=== PATIENT | female | born 1935 | race Caucasian/White ===

== ENCOUNTER 2018-05-01 09:15 | Observation (INO) | payer MEDICARE, BC ==
[2018-05-01] VITALS (8 sets, daily range): BP systolic 132–149; BP diastolic 43–81
[~2018-05-01] VITALS: Ht 171.4 cm; Wt 61.0 kg
[~2018-05-01 09:15] MED LIST: BENA1TAB79 PO; METO-384 PO; PRAV40TA3 PO; SAXA1TBM2 PO; VERA-1 PO; [UNRECOGNIZED DRUG - OTHER] PO
[2018-05-01 10:23] LABS: BASOPHILS % (AUTO) 0.6 % (0-1); EOSINOPHILS # (AUTO) 0.1 X10'3 (0-0.9); EOSINOPHILS % (AUTO) 1.8 % (0-6); LYMPHOCYTES # (AUTO) 1.3 X10'3 (1.1-4.8); LYMPHOCYTES % (AUTO) 17.6 % (21-51); MEAN CORPUSCULAR HEMOGLOBIN 18.4 PG (27.0-31.0); MEAN CORPUSCULAR HGB CONC 29.7 % (33.0-36.5); MEAN CORPUSCULAR VOLUME 61.8 FL (78-98); MEAN PLATELET VOLUME 7.9 FL (7.4-10.4); MONOCYTES # (AUTO) 0.5 X10'3 (0-0.9); MONOCYTES % (AUTO) 6.3 % (2-12); NEUTROPHILS # (AUTO) 5.7 X10'3 (1.8-7.7); NEUTROPHILS % (AUTO) 73.7 % (42-75); PLATELET COUNT 332 X10'3 (140-440); RED BLOOD COUNT 2.96 X10'6 (4.20-5.60); RED CELL DISTRIBUTION WIDTH 18.1 % (11.5-14.5); WHITE BLOOD COUNT 7.6 X10'3 (4.5-11.0)
[2018-05-01 10:30] LABS: PARTIAL THROMBOPLASTIN TIME 24 SECONDS (22-32); PROTHROMBIN TIME 10.7 SECONDS (9.0-12.0)
[2018-05-01 10:31] LABS: HEMATOCRIT 18.3 % (35.0-45.0); HEMOGLOBIN 5.4 g/dl (12.0-16.0)
[2018-05-01 10:36] LABS: ALANINE AMINOTRANSFERASE 16 U/L (12-78); ALBUMIN 3.7 G/DL (3.4-5.0); ALKALINE PHOSPHATASE 64 IU/L (46-116); ANION GAP 11 (8-16); ASPARTATE AMINO TRANSFERASE 16 U/L (10-37); BILIRUBIN,TOTAL 0.2 MG/DL (0.1-1.0); BLOOD UREA NITROGEN 36 MG/DL (7-18); BUN/CREATININE RATIO 23.1 (6.6-38.0); CALCIUM 8.9 MG/DL (8.5-10.1); CHLORIDE 101 MMOL/L (99-107); CREATININE 1.56 MG/DL (0.40-0.90); GLUCOSE 139 MG/DL (70-104); POTASSIUM 4.5 MMOL/L (3.5-5.1); SODIUM 140 MMOL/L (135-145); TOTAL CARBON DIOXIDE 28.2 MMOL/L (24-32); TOTAL PROTEIN 7.4 G/DL (6.4-8.2); eGFR 32 ML/MIN
[2018-05-01 10:45] LABS: HYPOCHROMASIA 2+; PLATELET ESTIMATE NORMAL
[2018-05-01 10:46] LABS: ANISOCYTOSIS 2+; ELLIPTOCYTES 1+; MICROCYTOSIS 3+; SCHISTOCYTES 1+
[2018-05-01 11:06] LABS: CLARITY,URINE CLEAR (Clear); COLOR,URINE YELLOW (Yellow); GLUCOSE, URINE NEGATIVE (Neg); KETONES,URINE NEGATIVE (Neg); LEUKOCYTE ESTERASE ,URINE NEGATIVE (Neg); NITRITES, URINE NEGATIVE (Neg); OCCULT BLOOD,URINE NEGATIVE (Neg); PH,URINE 6.5 (4.8-8.0); PROTEIN,URINE NEGATIVE (Neg); UROBILINOGEN,URINE 0.2 E.U/dL (0.2-1.0)
[2018-05-01 11:09] LABS: UA COLLECTION TYPE CLN CATCH MIDSTREAM
[2018-05-01] MEDS ORDERED: APIX5TAB3 PO (11:32)
[2018-05-01] MEDS ORDERED: LISI-642 PO (11:32)
[2018-05-01] MEDS ORDERED: LINA5TAB4 PO (11:32)
[2018-05-01] MEDS ORDERED: LANTUS SQ (11:32)
[2018-05-01] MEDS ORDERED: SPIR25TA PO (11:32)
[2018-05-01] MEDS ORDERED: FURO-150 PO (11:32)
[2018-05-01] MEDS ORDERED: PANT-47 PO (11:32)
[2018-05-01] MEDS ORDERED: AMIO200T40 PO (11:32)
[2018-05-01] MEDS ORDERED: METO-539 PO (11:32)
[2018-05-01] MEDS ORDERED: magnesium hydroxide 30ml (MOM) UD suspension PO PRN (14:00)
[2018-05-01] MEDS ORDERED: ondansetron/PF 4mg/2ml inj IV PRN (14:00)
[2018-05-01] MEDS ORDERED: mag hydrox/Alum hydrox/simeth 30ml oral suspension PO PRN (14:00)
[2018-05-01] MEDS: acetaminophen 325mg tablet PO PRN (15:17)
[2018-05-01 16:26] LABS: HEMATOCRIT 22.5 % (35.0-45.0); HEMOGLOBIN 7.1 g/dl (12.0-16.0); MEAN CORPUSCULAR HEMOGLOBIN 20.8 PG (27.0-31.0); MEAN CORPUSCULAR HGB CONC 31.6 % (33.0-36.5); MEAN CORPUSCULAR VOLUME 65.6 FL (78-98); MEAN PLATELET VOLUME 8.1 FL (7.4-10.4); PLATELET COUNT 287 X10'3 (140-440); RED BLOOD COUNT 3.44 X10'6 (4.20-5.60); RED CELL DISTRIBUTION WIDTH 22.7 % (11.5-14.5); WHITE BLOOD COUNT 6.6 X10'3 (4.5-11.0)
[2018-05-01] MEDS ORDERED: heparin, porcine 5000 units/ml vial SQ SCH (20:00)
[2018-05-01] MEDS: apixaban 5mg tablet PO SCH (22:19)
[2018-05-01] MEDS ORDERED: glucagon, human recombinant 1mg kit SUBCUT PRN (22:45)
[2018-05-01] MEDS ORDERED: MESSAGE TO PHARMACY PO ONE (22:45)
[2018-05-01] MEDS ORDERED: insulin Lispro (HumaLOG) vial - multi-dose SQ SCH (22:45)
[2018-05-01] MEDS ORDERED: dextrose 50%-water 50ml dispensing syringe IV PRN ×2 (22:45)
[2018-05-01] MEDS ORDERED: dextrose ORAL solution 15 GM/59 ML bottle PO PRN ×2 (22:45)
[2018-05-02] VITALS (7 sets, daily range): BP systolic 131–155; BP diastolic 50–58
[2018-05-02] MEDS: acetaminophen 325mg tablet PO PRN (04:08)
[2018-05-02] MEDS: apixaban 5mg tablet PO SCH (07:20)
[2018-05-02] MEDS ORDERED: amiodarone 200mg tablet PO SCH (08:00)
[2018-05-02] MEDS ORDERED: metoprolol succinate 25mg (24-HOUR) SR. Tablet PO SCH (08:00)
[2018-05-02 08:59] LABS: HEMATOCRIT 26.4 % (35.0-45.0); HEMOGLOBIN 8.8 g/dl (12.0-16.0); MEAN CORPUSCULAR HEMOGLOBIN 22.6 PG (27.0-31.0); MEAN CORPUSCULAR HGB CONC 33.3 % (33.0-36.5); MEAN PLATELET VOLUME 7.9 FL (7.4-10.4); PLATELET COUNT 286 X10'3 (140-440); RED BLOOD COUNT 3.89 X10'6 (4.20-5.60); RED CELL DISTRIBUTION WIDTH 24.9 % (11.5-14.5); WHITE BLOOD COUNT 6.7 X10'3 (4.5-11.0)
[2018-05-02] MEDS ORDERED: insulin glargine (Lantus) pen - multi-dose SQ SCH (21:00)
== END 2018-05-02 14:35 | disposition home or self-care (01) ==
LOC: ER 09:16 → ED HOLD 13:57 → PCU 3S 14:55
PROVIDERS: ADMIT Family Medicine; ATTEND Family Medicine
DX: D64.9 Anemia, unspecified (principal); R42 Dizziness and giddiness; R06.02 Shortness of breath; E11.9 Type 2 diabetes mellitus without complications; E78.00 Pure hypercholesterolemia, unspecified; I11.0 Hypertensive heart disease with heart failure; I50.9 Heart failure, unspecified; I48.91 Unspecified atrial fibrillation; J18.9 Pneumonia, unspecified organism; Z90.710 Acquired absence of both cervix and uterus
CPT/HCPCS: 36415; 36430; 71045; 80053; 81003; 82948; 83036; 85025; 85027; 85610; 85730; 86885; 86900; 86901; 86920; 87070; 93005; 99285; G0378; P9016; J1815

== ENCOUNTER 2018-06-17 08:24 | Day surgery (SDC) | payer MEDICARE, BC ==
[2018-06-17] VITALS (8 sets, daily range): BP systolic 116–135; BP diastolic 54–65
[~2018-06-17 08:24] MED LIST changes: +AMIO200T40 PO; +APIX5TAB3 PO; -BENA1TAB79 PO; +FURO-150 PO; +LANTUS SQ; +LINA5TAB4 PO; +LISI-642 PO; -METO-384 PO; +METO-539 PO; +PANT-47 PO; -PRAV40TA3 PO; -SAXA1TBM2 PO; +SPIR25TA PO; -VERA-1 PO; -[UNRECOGNIZED DRUG - OTHER] PO
[2018-06-17] MEDS ORDERED: ERGO400C2 PO (09:26)
[2018-06-17] MEDS ORDERED: VITA100C22 (09:26)
[2018-06-17] MEDS ORDERED: CYAN250014 (09:26)
[2018-06-17 14:47] LABS: HEMATOCRIT 29.3 % (35.0-45.0); HEMOGLOBIN 9.3 g/dl (12.0-16.0); MEAN CORPUSCULAR HEMOGLOBIN 22.8 PG (27.0-31.0); MEAN CORPUSCULAR HGB CONC 31.8 % (33.0-36.5); MEAN CORPUSCULAR VOLUME 71.6 FL (78-98); MEAN PLATELET VOLUME 8.2 FL (7.4-10.4); PLATELET COUNT 597 X10'3 (140-440); RED BLOOD COUNT 4.09 X10'6 (4.20-5.60); RED CELL DISTRIBUTION WIDTH 25.1 % (11.5-14.5); WHITE BLOOD COUNT 7.6 X10'3 (4.5-11.0)
== END 2018-06-17 15:00 | disposition home or self-care (01) ==
LOC: SSTAY O 08:24
PROVIDERS: ATTEND Family Medicine
DX: D64.9 Anemia, unspecified (principal); I48.91 Unspecified atrial fibrillation; I49.8 Other specified cardiac arrhythmias; M17.0 Bilateral primary osteoarthritis of knee; M19.011 Primary osteoarthritis, right shoulder; M19.012 Primary osteoarthritis, left shoulder; E11.9 Type 2 diabetes mellitus without complications; I11.0 Hypertensive heart disease with heart failure; I50.9 Heart failure, unspecified; Z87.01 Personal history of pneumonia (recurrent); Z90.710 Acquired absence of both cervix and uterus; Z79.01 Long term (current) use of anticoagulants; Z79.4 Long term (current) use of insulin; Z87.09 Personal history of other diseases of the respiratory system; Z79.899 Other long term (current) drug therapy; Z98.890 Other specified postprocedural states
CPT/HCPCS: 36415; 36430; 82948; 85027; 86885; 86900; 86901; 86920; P9016

== ENCOUNTER 2019-10-20 13:27 | Emergency (ER) | payer MEDICARE, BC ==
[~2019-10-20] VITALS: Ht 170.2 cm; Wt 58.0 kg
[~2019-10-20 13:27] MED LIST changes: +ALBU8.5H8 IH; -AMIO200T40 PO; +ASCO500C12 PO; +CYAN250014; +ERGO400C2 PO; +HYDR-3717 PO; +HYDR-3965 PO; -LANTUS SQ; +LEVO25TA2 PO; +METF500T PO; -PANT-47 PO; -SPIR25TA PO; +VITA100C22
[2019-10-20] MEDS ORDERED: normal saline 1000ml 1,000 ML IV ONE (13:55)
--- NOTE | 2019-10-20 13:55 | NUR ---
is waiting outside [phone]
[2019-10-20 14:24] LABS: BASOPHILS % (AUTO) 0.4 % (0-1); EOSINOPHILS # (AUTO) 0.1 X10'3 (0-0.9); EOSINOPHILS % (AUTO) 2.1 % (0-6); HEMATOCRIT 41.6 % (35.0-45.0); HEMOGLOBIN 13.3 g/dl (12.0-16.0); LYMPHOCYTES # (AUTO) 2.7 X10'3 (1.1-4.8); LYMPHOCYTES % (AUTO) 40.5 % (21-51); MEAN CORPUSCULAR HEMOGLOBIN 27.9 PG (27.0-31.0); MEAN CORPUSCULAR HGB CONC 32.1 g/dL (33.0-36.5); MEAN CORPUSCULAR VOLUME 86.9 FL (78-98); MEAN PLATELET VOLUME 8.5 FL (7.4-10.4); MONOCYTES # (AUTO) 0.4 X10'3 (0-0.9); MONOCYTES % (AUTO) 6.4 % (2-12); NEUTROPHILS # (AUTO) 3.4 X10'3 (1.8-7.7); NEUTROPHILS % (AUTO) 50.6 % (42-75); PLATELET COUNT 314 X10'3 (140-440); RED BLOOD COUNT 4.78 X10'6 (4.20-5.60); RED CELL DISTRIBUTION WIDTH 13.7 % (11.5-14.5); WHITE BLOOD COUNT 6.7 X10'3 (4.5-11.0)
[2019-10-20 14:25] LABS: CLARITY,URINE CLEAR (Clear); COLOR,URINE YELLOW (Yellow); GLUCOSE, URINE NEGATIVE (Neg); KETONES,URINE NEGATIVE (Neg); LEUKOCYTE ESTERASE ,URINE NEGATIVE (Neg); NITRITES, URINE NEGATIVE (Neg); OCCULT BLOOD,URINE NEGATIVE (Neg); PROTEIN,URINE NEGATIVE (Neg); UA COLLECTION TYPE CLN CATCH MIDSTREAM; UROBILINOGEN,URINE 0.2 E.U/dL (0.2-1.0)
--- NOTE | 2019-10-20 14:48 | NUR ---
ed number given to , stated will call to check on .
[2019-10-20 14:51] LABS: ALBUMIN 4.6 G/DL (3.4-5.0); ALBUMIN/GLOBULIN RATIO 1.3 (1.1-1.5); ALKALINE PHOSPHATASE 81 IU/L (46-116); ANION GAP 10 (8-16); ASPARTATE AMINO TRANSFERASE 19 U/L (10-37); BILIRUBIN,TOTAL 0.4 MG/DL (0.1-1.0); BLOOD UREA NITROGEN 23 MG/DL (7-18); BUN/CREATININE RATIO 25.6 (6.6-38.0); CHLORIDE 98 MMOL/L (99-107); GLUCOSE 200 MG/DL (70-104); MAGNESIUM 1.9 MG/DL (1.5-2.4); POTASSIUM 3.9 MMOL/L (3.5-5.1); SODIUM 139 MMOL/L (135-145); TOTAL PROTEIN 8.1 G/DL (6.4-8.2); eGFR 60 ML/MIN
[2019-10-20 15:06] LABS: ALANINE AMINOTRANSFERASE 10 U/L (12-78)
[2019-10-20 16:22] VITALS: BP 146/66
== END 2019-10-20 16:29 | disposition home or self-care (01) ==
LOC: ER 13:28
DX: E86.0 Dehydration (principal); R42 Dizziness and giddiness; I48.91 Unspecified atrial fibrillation; E78.00 Pure hypercholesterolemia, unspecified; I10 Essential (primary) hypertension; E11.9 Type 2 diabetes mellitus without complications; M19.90 Unspecified osteoarthritis, unspecified site; G89.29 Other chronic pain; Z79.01 Long term (current) use of anticoagulants; Z79.899 Other long term (current) drug therapy
CPT/HCPCS: 36415; 71045; 80053; 81003; 83735; 84484; 85025; 93005; 96360; 99285; J7030

== ENCOUNTER 2019-11-07 14:14 | Observation (INO) | payer MEDICARE, BC ==
[~2019-11-07] VITALS: Ht 170.2 cm; Wt 58.2 kg
[2019-11-07 14:45] LABS: BASOPHILS % (AUTO) 0.5 % (0-1); EOSINOPHILS # (AUTO) 0.2 X10'3 (0-0.9); EOSINOPHILS % (AUTO) 2.5 % (0-6); HEMATOCRIT 38.5 % (35.0-45.0); HEMOGLOBIN 12.4 g/dl (12.0-16.0); LYMPHOCYTES # (AUTO) 3.4 X10'3 (1.1-4.8); LYMPHOCYTES % (AUTO) 48.6 % (21-51); MEAN CORPUSCULAR HGB CONC 32.3 g/dL (33.0-36.5); MEAN CORPUSCULAR VOLUME 86.7 FL (78-98); MEAN PLATELET VOLUME 8.5 FL (7.4-10.4); MONOCYTES # (AUTO) 0.6 X10'3 (0-0.9); MONOCYTES % (AUTO) 8.1 % (2-12); NEUTROPHILS # (AUTO) 2.8 X10'3 (1.8-7.7); NEUTROPHILS % (AUTO) 40.3 % (42-75); PLATELET COUNT 222 X10'3 (140-440); RED BLOOD COUNT 4.43 X10'6 (4.20-5.60); RED CELL DISTRIBUTION WIDTH 13.7 % (11.5-14.5); WHITE BLOOD COUNT 7.1 X10'3 (4.5-11.0)
[2019-11-07 14:53] LABS: PARTIAL THROMBOPLASTIN TIME 36 SECONDS (22-32)
[2019-11-07 14:55] LABS: ALANINE AMINOTRANSFERASE 16 U/L (12-78); ALBUMIN 4.3 G/DL (3.4-5.0); ALBUMIN/GLOBULIN RATIO 1.4 (1.1-1.5); ALKALINE PHOSPHATASE 83 IU/L (46-116); ANION GAP 4 (8-16); ASPARTATE AMINO TRANSFERASE 20 U/L (10-37); BILIRUBIN,TOTAL 0.4 MG/DL (0.1-1.0); BLOOD UREA NITROGEN 23 MG/DL (7-18); BUN/CREATININE RATIO 23.2 (6.6-38.0); CALCIUM 9.3 MG/DL (8.5-10.1); CHLORIDE 96 MMOL/L (99-107); CREATININE 0.99 MG/DL (0.40-0.90); GLUCOSE 162 MG/DL (70-104); POTASSIUM 3.9 MMOL/L (3.5-5.1); SODIUM 133 MMOL/L (135-145); TOTAL PROTEIN 7.3 G/DL (6.4-8.2); eGFR 54 ML/MIN
[2019-11-07 14:58] LABS: CLARITY,URINE CLEAR (Clear); COLOR,URINE YELLOW (Yellow); GLUCOSE, URINE NEGATIVE (Neg); KETONES,URINE NEGATIVE (Neg); LEUKOCYTE ESTERASE ,URINE NEGATIVE (Neg); NITRITES, URINE NEGATIVE (Neg); OCCULT BLOOD,URINE NEGATIVE (Neg); PH,URINE 5.5 (4.8-8.0); PROTEIN,URINE NEGATIVE (Neg); UROBILINOGEN,URINE 0.2 E.U/dL (0.2-1.0)
[2019-11-07 15:00] LABS: UA COLLECTION TYPE CLN CATCH MIDSTREAM
[2019-11-07] MEDS ORDERED: dextrose 50%-water 50ml dispensing syringe IV PRN ×2 (16:25)
[2019-11-07] MEDS ORDERED: dextrose ORAL solution 15 GM/59 ML bottle PO PRN ×2 (16:25)
[2019-11-07] MEDS ORDERED: MESSAGE TO PHARMACY PO ONE (16:25)
[2019-11-07] MEDS ORDERED: magnesium hydroxide 30ml (MOM) UD suspension PO PRN (16:25)
[2019-11-07] MEDS ORDERED: HYDROcodone/acetaminophen 5mg/325mg tablet PO PRN (16:25)
[2019-11-07] MEDS ORDERED: acetaminophen 325mg tablet PO PRN ×2 (16:25)
[2019-11-07] MEDS ORDERED: morphine 2 MG/ML inj. syringe IV PRN ×2 (16:25)
[2019-11-07] MEDS ORDERED: ondansetron/PF 4mg/2ml inj IV PRN (16:25)
[2019-11-07] MEDS ORDERED: glucagon, human recombinant 1mg kit SUBCUT PRN (16:25)
[2019-11-07] MEDS ORDERED: mag hydrox/Alum hydrox/simeth 30ml oral suspension PO PRN (16:25)
[2019-11-07] MEDS ORDERED: insulin Lispro (HumaLOG) vial - multi-dose SQ SCH (16:25)
[2019-11-07] MEDS ORDERED: iohexol 350MG/ML 100ml bottle IV ONE (16:35)
[2019-11-07 17:05] LABS: HEMOGLOBIN A1C 7.3 % (4.5-6.2)
--- NOTE | 2019-11-07 17:40 | NUR ---
Received report from Dilshad KIMBALL
[2019-11-07 18:30] VITALS: BP 124/61
[2019-11-07] MEDS ORDERED: insulin glargine (Lantus) pen - multi-dose SQ SCH (21:00)
[2019-11-07] MEDS ORDERED: SACU1TAB (21:51)
[2019-11-07] MEDS ORDERED: MELA10TA7 PO (21:52)
[2019-11-07 22:00] VITALS: BP 114/65
[2019-11-07] MEDS ORDERED: apixaban 5mg tablet PO ONE (22:20)
[2019-11-07] MEDS ORDERED: Melatonin 3mg tablet PO ONE (22:20)
[2019-11-08 02:05] VITALS: BP 96/52
--- NOTE | 2019-11-08 06:32 | NUR ---
Problems reprioritized. Patient report given, questions answered & plan of care reviewed with REHANA NEAL.
[2019-11-08 06:37] LABS: BASOPHILS % (AUTO) 0.6 % (0-1); EOSINOPHILS # (AUTO) 0.1 X10'3 (0-0.9); EOSINOPHILS % (AUTO) 2.8 % (0-6); HEMATOCRIT 38.2 % (35.0-45.0); HEMOGLOBIN 12.5 g/dl (12.0-16.0); LYMPHOCYTES # (AUTO) 1.8 X10'3 (1.1-4.8); LYMPHOCYTES % (AUTO) 36.4 % (21-51); MEAN CORPUSCULAR HEMOGLOBIN 27.8 PG (27.0-31.0); MEAN CORPUSCULAR HGB CONC 32.8 g/dL (33.0-36.5); MEAN CORPUSCULAR VOLUME 84.8 FL (78-98); MONOCYTES # (AUTO) 0.4 X10'3 (0-0.9); MONOCYTES % (AUTO) 8.6 % (2-12); NEUTROPHILS # (AUTO) 2.6 X10'3 (1.8-7.7); NEUTROPHILS % (AUTO) 51.6 % (42-75); PLATELET COUNT 229 X10'3 (140-440); RED CELL DISTRIBUTION WIDTH 13.6 % (11.5-14.5)
[2019-11-08 06:43] LABS: ALBUMIN 3.6 G/DL (3.4-5.0); ANION GAP 5 (8-16); BLOOD UREA NITROGEN 22 MG/DL (7-18); CALCIUM 9.3 MG/DL (8.5-10.1); CHLORIDE 101 MMOL/L (99-107); CHOL/HDL RATIO 4.1 (0.00-4.99); CHOLESTEROL 209 MG/DL (0-200); CREATININE 0.88 MG/DL (0.40-0.90); GLUCOSE 120 MG/DL (70-104); HDL CHOLESTEROL 51 MG/DL (35-60); LDL CHOLESTEROL 145 MG/DL (50-100); POTASSIUM 3.8 MMOL/L (3.5-5.1); SODIUM 139 MMOL/L (135-145); TOTAL CARBON DIOXIDE 33.4 MMOL/L (24-32); TRIGLYCERIDES 88 MG/DL (20-135); eGFR 61 ML/MIN
[2019-11-08 07:12] VITALS: BP 109/65
[2019-11-08] MEDS ORDERED: aspirin 81mg tablet.DR PO SCH (08:00)
--- NOTE | 2019-11-08 08:17 | NUR ---
PT REFUSED ASPRIN BECAUSE HER PCP TOLD HER IT INTERACTS WITH CURRENT HOME MEDS. AWARE
[2019-11-08] MEDS ORDERED: ALBU8.5H8 INH (09:18)
[2019-11-08] MEDS ORDERED: FURO-150 PO (09:22)
--- NOTE | 2019-11-08 11:40 | NUR ---
DM Consult: A1C 7.3. Pt admit w/ syncope hx CHF, T2DM, afib, and hypothyroidism. Possible stroke or seizure per MD pending EEG, echocardiogram, and CTA head. Written DM ed w/ RD contact information placed in pt chart. Will continue to monitor. Addendum: 11/08/19 at [address] Amended: Links added.
[2019-11-08 12:03] VITALS: BP 85/49
[2019-11-08] MEDS ORDERED: ASPI-1071 PO (12:37)
[2019-11-08] MEDS ORDERED: ATOR10TA PO (12:40)
== END 2019-11-08 14:20 | disposition home or self-care (01) ==
LOC: ER 14:14 → ED HOLD 16:24 → EDBEDREQ 17:09 → ORTHO 4S 18:51
PROVIDERS: ADMIT Internal Medicine; ATTEND Internal Medicine
DX: R55 Syncope and collapse (principal); E11.9 Type 2 diabetes mellitus without complications; I48.0 Paroxysmal atrial fibrillation; E03.9 Hypothyroidism, unspecified; I11.0 Hypertensive heart disease with heart failure; I50.9 Heart failure, unspecified; E78.00 Pure hypercholesterolemia, unspecified; G45.9 Transient cerebral ischemic attack, unspecified; M19.90 Unspecified osteoarthritis, unspecified site; G89.29 Other chronic pain; Z79.01 Long term (current) use of anticoagulants; Z79.82 Long term (current) use of aspirin; Z79.84 Long term (current) use of oral hypoglycemic drugs; Z79.899 Other long term (current) drug therapy
CPT/HCPCS: 36415; 70450; 70496; 70498; 71045; 80048; 80053; 80061; 81003; 82948; 83036; 83880; 85025; 85610; 85651; 85730; 86885; 86900; 86901; 87081; 92508; 92616; 93005; 95816; 97116; 97161; 97530; 99285; G0378; Q9967; 99284; J1815

== ENCOUNTER 2023-11-13 10:49 | Outpatient (CLI) | payer MEDICARE, BC ==
[~2023-11-13 10:49] MED LIST changes: -ALBU8.5H8 IH; +APIX2.5T PO; -APIX5TAB3 PO; -HYDR-3965 PO; -LISI-642 PO; +MELA10TA20 PO; -VITA100C22; +VITA100C24
== END 2023-11-13 23:59 | disposition home or self-care (01) ==
LOC: RAD 10:49
PROVIDERS: ATTEND Family Medicine
DX: R91.8 Other nonspecific abnormal finding of lung field (principal)
CPT/HCPCS: 71250

== ENCOUNTER 2024-05-01 10:39 | Inpatient (IN) | payer MEDICARE, BC ==
[~2024-05-01] VITALS: Ht 215.9 cm; Wt 45.0 kg
[2024-05-01 12:27] LABS: MEAN CORPUSCULAR VOLUME 87.2 FL (78-98); MONOCYTES # (AUTO) 0.8 X10'3 (0-0.9)
[2024-05-01 12:29] LABS: BASOPHILS % (AUTO) 0.1 % (0-1); EOSINOPHILS # (AUTO) 0.1 X10'3 (0-0.9); EOSINOPHILS % (AUTO) 0.6 % (0-6); HEMATOCRIT 34.7 % (35.0-45.0); HEMOGLOBIN 11.6 g/dl (12.0-16.0); LYMPHOCYTES # (AUTO) 0.8 X10'3 (1.1-4.8); LYMPHOCYTES % (AUTO) 6.8 % (21-51); MEAN CORPUSCULAR HEMOGLOBIN 29.2 PG (27.0-31.0); MEAN CORPUSCULAR HGB CONC 33.5 g/dL (33.0-36.5); MEAN PLATELET VOLUME 9.2 FL (7.4-10.4); MONOCYTES % (AUTO) 7.4 % (2-12); NEUTROPHILS # (AUTO) 9.8 X10'3 (1.8-7.7); NEUTROPHILS % (AUTO) 85.1 % (42-75); PLATELET COUNT 260 X10'3 (140-440); RED BLOOD COUNT 3.98 X10'6 (4.20-5.60); RED CELL DISTRIBUTION WIDTH 14.2 % (11.5-14.5); WHITE BLOOD COUNT 11.5 X10'3 (4.5-11.0)
[2024-05-01 12:41] LABS: ALANINE AMINOTRANSFERASE 21 U/L (12-78); ALBUMIN/GLOBULIN RATIO 0.8 (1.1-1.5); ALKALINE PHOSPHATASE 93 IU/L (46-116); ANION GAP 7 (8-16); ASPARTATE AMINO TRANSFERASE 16 U/L (10-37); BILIRUBIN,TOTAL 0.4 MG/DL (0.1-1.0); BLOOD UREA NITROGEN 23 MG/DL (7-18); BUN/CREATININE RATIO 21.5 (10.0-20.0); CALCIUM 9.4 MG/DL (8.5-10.1); CHLORIDE 94 MMOL/L (99-107); CREATININE 1.07 MG/DL (0.40-0.90); GLUCOSE 364 MG/DL (70-104); POTASSIUM 5.1 MMOL/L (3.5-5.1); SODIUM 132 MMOL/L (135-145); TOTAL CARBON DIOXIDE 30.7 MMOL/L (24-32); eCRCL 26 ML/MIN; eGFR 49 ML/MIN
[2024-05-01 12:48] LABS: MAGNESIUM 1.6 MG/DL (1.5-2.4); PRO BRAIN NATRIURETIC PEPTIDE 2550 PG/ML (0-450)
[2024-05-01] MEDS: methylPREDNISolone sod succ 125mg/2ml vial IV ONE ×2 (14:20→17:33)
[2024-05-01] MEDS: cefepime 2g/NS 100ml ADVANTAGE 100 ML IV ONE (15:22)
[2024-05-01] MEDS: normal saline 1000ml 1,000 ML IV ONE (16:14)
[2024-05-01] MEDS: azithromycin/NS 500mg/250ml 250 ML IV ONE (16:20)
[2024-05-01] MEDS ORDERED: magnesium Cl slow-release 64mg tablet PO PRN ×2 (16:35→18:45)
[2024-05-01] MEDS ORDERED: potassium Cl 20 mEq SR tablet PO PRN ×4 (16:35→18:45)
[2024-05-01] MEDS ORDERED: potassium Cl 40MEQ/1/2NS 520ml 520 ML IV PRN ×2 (16:35→18:45)
[2024-05-01] MEDS ORDERED: magnesium sulf-water 2g/50mL 50 ML IV PRN ×2 (16:35→18:45)
[2024-05-01] MEDS ORDERED: magnesium sulf-water 4G/100mL 100 ML IV PRN ×2 (16:35→18:45)
[2024-05-01] MEDS: ondansetron/PF 4mg/2ml inj IV ONE (17:33)
[2024-05-01] MEDS: acetaminophen 1,000mg/100ml IV 100 ML IV ONE (17:34)
[2024-05-01] MEDS ORDERED: ondansetron/PF 4mg/2ml inj IV PRN (18:45)
[2024-05-01 18:47] LABS: BILIRUBIN,URINE NEGATIVE (Neg); CLARITY,URINE CLEAR (Clear); COLOR,URINE YELLOW (Yellow); GLUCOSE, URINE >=1000 mg/dl (Neg); KETONES,URINE NEGATIVE (Neg); LEUKOCYTE ESTERASE ,URINE NEGATIVE (Neg); NITRITES, URINE NEGATIVE (Neg); OCCULT BLOOD,URINE NEGATIVE (Neg); PH,URINE 5.5 (4.8-8.0); PROTEIN,URINE TRACE mg/dl (Neg); UROBILINOGEN,URINE 0.2 E.U/dL (0.2-1.0)
[2024-05-01 19:11] LABS: UA COLLECTION TYPE OTHER
[2024-05-01 19:12] LABS: BACTERIA,URINE FEW /HPF (Neg); RBC,URINE 0-2 /HPF (0-2); SQUAMOUS EPITHELIAL CELL,UR FEW /LPF (FEW); WBC,URINE 0-4 /HPF (0-4)
[2024-05-01] MEDS: ipratropium/albuterol 3ml nebule NEB SCH (19:14)
[2024-05-01 19:17] VITALS: PULSE 96; RESP 20; O2SAT 94
[2024-05-01 19:24] VITALS: PULSE 103; RESP 20
[2024-05-01] MEDS: K and/or MAG REPLACEMENT MC SCH ×2 (19:27)
[2024-05-01] MEDS: normal saline 1000ml 1,000 ML IV SCH (19:30)
[2024-05-01] MEDS ORDERED: LEVO50TA PO (20:03)
[2024-05-01] MEDS ORDERED: SACU1TAB7 PO (20:03)
[2024-05-01] MEDS ORDERED: SPIR1TAB4 PO (20:03)
[2024-05-01] MEDS ORDERED: dextrose 50%-water 50ml dispensing syringe IV PRN ×2 (20:20)
[2024-05-01] MEDS ORDERED: DEXTROSE 15 GM of carb/4 tabs (each vial/BOTTLE has 4 tablets) PO PRN ×2 (20:20)
[2024-05-01] MEDS ORDERED: glucagon, human recombinant 1mg kit SUBCUT PRN (20:20)
[2024-05-01] MEDS: INSULIN LISPRO 100 UNIT/ML INSULN.PEN MULTI-DOSE SQ SCH (20:32)
[2024-05-01 21:03] LABS: HEMOGLOBIN A1C 7.7 % (4.5-6.2)
[2024-05-01] MEDS: insulin glargine (Lantus) pen - multi-dose SQ SCH (21:15)
[2024-05-01] MEDS: PERFLUTREN PROTEIN-A MICROSPHR (Optison) 0.22 MG/ML 3ML VIAL IV ONE (21:18)
[2024-05-01 23:00] VITALS: BP 100/58; PULSE 100; PULSE 86; RESP 13; RESP 20; TEMP 98; O2SAT 94
[2024-05-01 23:07] VITALS: PULSE 89; RESP 20
[2024-05-01] MEDS: Melatonin 3mg tablet PO ONE (23:09)
[2024-05-01 23:45] VITALS: RESP 16; O2SAT 96
[2024-05-02] VITALS (16 sets, daily range): BP systolic 102–125; BP diastolic 46–75; PULSE 65–87; RESP 15–21; TEMP 97.1–97.9; O2SAT 92–100
[2024-05-02] MEDS: azithromycin/NS 500mg/250ml 250 ML IV ONE (05:49)
[2024-05-02] MEDS ORDERED: azithromycin/NS 500mg/250ml 250 ML IV SCH (08:00)
[2024-05-02] MEDS: sacubitril/valsartan 49mg-51mg tablet PO SCH (08:19)
[2024-05-02] MEDS: apixaban 2.5mg tablet PO SCH (08:19)
[2024-05-02] MEDS: metoprolol succinate 25mg (24-HOUR) SR. Tablet PO SCH (08:19)
[2024-05-02] MEDS: levoTHYROXINE 25mcg tablet PO SCH (08:19)
[2024-05-02 08:32] LABS: BASOPHILS % (AUTO) 0.1 % (0-1); EOSINOPHILS % (AUTO) 0 % (0-6); HEMATOCRIT 30.5 % (35.0-45.0); LYMPHOCYTES # (AUTO) 0.5 X10'3 (1.1-4.8); LYMPHOCYTES % (AUTO) 4.3 % (21-51); MEAN CORPUSCULAR HEMOGLOBIN 28.9 PG (27.0-31.0); MEAN CORPUSCULAR HGB CONC 32.7 g/dL (33.0-36.5); MEAN CORPUSCULAR VOLUME 88.6 FL (78-98); MEAN PLATELET VOLUME 9.7 FL (7.4-10.4); MONOCYTES # (AUTO) 0.3 X10'3 (0-0.9); MONOCYTES % (AUTO) 2.9 % (2-12); NEUTROPHILS % (AUTO) 92.7 % (42-75); PLATELET COUNT 273 X10'3 (140-440); RED BLOOD COUNT 3.45 X10'6 (4.20-5.60); RED CELL DISTRIBUTION WIDTH 14.8 % (11.5-14.5); WHITE BLOOD COUNT 10.8 X10'3 (4.5-11.0)
[2024-05-02 08:44] LABS: ALBUMIN 2.6 G/DL (3.4-5.0); ANION GAP 8 (8-16); BLOOD UREA NITROGEN 29 MG/DL (7-18); BUN/CREATININE RATIO 27.1 (10.0-20.0); CALCIUM 9.2 MG/DL (8.5-10.1); CHLORIDE 99 MMOL/L (99-107); CREATININE 1.07 MG/DL (0.40-0.90); MAGNESIUM 1.7 MG/DL (1.5-2.4); SODIUM 133 MMOL/L (135-145); TOTAL CARBON DIOXIDE 26.3 MMOL/L (24-32); eCRCL 26 ML/MIN; eGFR 49 ML/MIN
[2024-05-02 08:52] LABS: GLUCOSE 461 MG/DL (70-104)
[2024-05-02] MEDS: furosemide 10 MG/1 ML 10ml inj IV SCH (09:39)
[2024-05-02] MEDS: CefTRIAXone/D5W-Rocephin 1gm 50 ML IV SCH (20:17)
[2024-05-02] MEDS: sennosides/docusate sodium tablet PO SCH (20:44)
[2024-05-02] MEDS: acetaminophen 325mg tablet PO PRN (20:44)
[2024-05-02] MEDS: Melatonin 3mg tablet PO PRN (20:45)
[2024-05-03] VITALS: BP 106/58; PULSE 77; RESP 16; TEMP 97.8; O2SAT 98
[2024-05-03 07:00] VITALS: BP 121/62; PULSE 83; RESP 17; TEMP 97.2; O2SAT 98
[2024-05-03 07:16] LABS: BASOPHILS % (AUTO) 0.1 % (0-1); EOSINOPHILS # (AUTO) 0.1 X10'3 (0-0.9); EOSINOPHILS % (AUTO) 0.6 % (0-6); HEMATOCRIT 29.5 % (35.0-45.0); HEMOGLOBIN 9.8 g/dl (12.0-16.0); LYMPHOCYTES % (AUTO) 8.8 % (21-51); MEAN CORPUSCULAR HEMOGLOBIN 29.1 PG (27.0-31.0); MEAN CORPUSCULAR HGB CONC 33.2 g/dL (33.0-36.5); MEAN CORPUSCULAR VOLUME 87.9 FL (78-98); MEAN PLATELET VOLUME 8.5 FL (7.4-10.4); MONOCYTES # (AUTO) 0.7 X10'3 (0-0.9); MONOCYTES % (AUTO) 6.5 % (2-12); NEUTROPHILS # (AUTO) 9.2 X10'3 (1.8-7.7); PLATELET COUNT 292 X10'3 (140-440); RED BLOOD COUNT 3.36 X10'6 (4.20-5.60); RED CELL DISTRIBUTION WIDTH 14.7 % (11.5-14.5)
[2024-05-03 07:23] LABS: ALBUMIN 2.5 G/DL (3.4-5.0); ANION GAP 4 (8-16); BLOOD UREA NITROGEN 34 MG/DL (7-18); BUN/CREATININE RATIO 32.7 (10.0-20.0); CHLORIDE 100 MMOL/L (99-107); CREATININE 1.04 MG/DL (0.40-0.90); GLUCOSE 221 MG/DL (70-104); MAGNESIUM 1.6 MG/DL (1.5-2.4); POTASSIUM 4.6 MMOL/L (3.5-5.1); SODIUM 135 MMOL/L (135-145); TOTAL CARBON DIOXIDE 30.8 MMOL/L (24-32); eCRCL 27 ML/MIN; eGFR 50 ML/MIN
[2024-05-03 10:51] VITALS: PULSE 101; RESP 18; O2SAT 92
[2024-05-03 11:00] VITALS: BP 118/59; PULSE 103; PULSE 81; RESP 16; RESP 20; TEMP 97.4; O2SAT 97
[2024-05-03] MEDS ORDERED: LEVO-65 PO (12:54)
== END 2024-05-03 15:43 | disposition home or self-care (01) | DRG 193 ==
LOC: ER 10:40 → ED HOLD 16:34 → PCU 3S 22:33
PROVIDERS: ADMIT Internal Medicine; ATTEND Internal Medicine
DX: J18.9 Pneumonia, unspecified organism (principal); I50.23 Acute on chronic systolic (congestive) heart failure; J44.0 Chronic obstructive pulmonary disease with (acute) lower respiratory infection; I11.0 Hypertensive heart disease with heart failure; E03.9 Hypothyroidism, unspecified; E11.9 Type 2 diabetes mellitus without complications; Z20.822 Contact with and (suspected) exposure to COVID-19; Z66 Do not resuscitate; E78.00 Pure hypercholesterolemia, unspecified; G89.29 Other chronic pain; M13.88 Other specified arthritis, other site; I48.91 Unspecified atrial fibrillation; Z79.01 Long term (current) use of anticoagulants; Z79.84 Long term (current) use of oral hypoglycemic drugs; Z87.01 Personal history of pneumonia (recurrent); Z90.710 Acquired absence of both cervix and uterus
CPT/HCPCS: 36415; 71045; 80048; 80053; 81001; 82948; 83036; 83735; 83880; 84145; 85025; 87081; 87502; 87503; 87634; 87811; 93005; 93306; 94640; 94760; 96374; 96375; 97110; 97116; 97161; 97530; 99285; A4615; A6212; C1758; G0378; J0131; J0456; J0692; J0696; J1815; J1940; J2405; J2919; J7030